=== PATIENT | male | born 1955 ===

== ENCOUNTER 2022-07-23 08:37 | Outpatient (CLI) | payer OTHER | END 2022-07-23 08:40 | disposition home or self-care (01) | LOC: SONOGRAMA 08:37 | PROVIDERS: ATTEND Pathology Anatomic Pathology & Clinical Pathology | DX: C73 Malignant neoplasm of thyroid gland (principal) ==

== ENCOUNTER → 2022-10-23 06:08 | Outpatient (CLI) | payer OTHER | END | disposition home or self-care (01) | LOC: LAB 06:08 | PROVIDERS: ATTEND Radiology Diagnostic Ultrasound | DX: C73 Malignant neoplasm of thyroid gland (principal); E89.0 Postprocedural hypothyroidism ==

== ENCOUNTER → 2023-04-01 06:07 | Outpatient (CLI) | payer OTHER ==
[2023-04-01 07:27] LABS: HEMATOCRIT 34.6 % (39.0-48.0); HEMOGLOBIN 11.8 g/dL (13-16.00); MEAN CELL VOLUME 92.4 fL (80.0-100.00); MEAN CORPUSCULAR HEMOGLOBIN 31.6 pg (27.00-32.0); MEAN CORPUSCULAR HGB CONC 34.2 g/dl (32.0-36.0); PLATELET COUNT 266 K/uL (150-450); RED BLOOD COUNT 3.74 M/uL (4.00-6.00); RED CELL DISTRIBUTION WIDTH 13.3 % (11.5-14.5)
[2023-04-01 07:37] LABS: PH,URINE 5.5 (5.0-8.0); URINE APPEARANCE Clear; URINE BILIRRUBIN Negative (NEGATIVE); URINE BLOOD Trace; URINE COLOR Yellow; URINE GLUCOSE Negative (NEGATIVE); URINE LEUKOCYTE Negative; URINE NITRATE Negative; URINE PROTEIN >=1000 (NEGATIVE); URINE UROBILINOGEN 0.2 E.U./dl
[2023-04-01 07:43] LABS: URINE BACTERIA 65.5 uL (0.0-1933); URINE EPITHELIAL CELLS 9.7 uL (0.0-38.8); URINE RBC 2.2 uL (0.0-20.8); URINE WBC 5.2 uL (0.0-23.2)
[2023-04-01 07:57] LABS: ALBUMIN 2.7 gm/dL (3.4-5.0); BILIRUBIN TOTAL 0.32 mg/dL (0.3-1.2); CALCIUM 8.8 mg/dL (8.5-10.1); CREATININE SERUM 2.28 mg/dL (0.70-1.30); GFR 28.62; GLOBULINA 3.3 G/DL (2.4-3.5); POTASSIUM 3.76 mEq/L (3.5-5.1); T4 FREE 1.4 NG/ML (0.76-1.46); TSH 0.408 uIU/mL (0.358-3.74)
== END | disposition home or self-care (01) ==
LOC: LAB 06:07
PROVIDERS: ATTEND Internal Medicine
DX: E11.65 Type 2 diabetes mellitus with hyperglycemia (principal); E03.8 Other specified hypothyroidism; C73 Malignant neoplasm of thyroid gland

== ENCOUNTER → 2023-04-26 07:02 | Outpatient (CLI) | payer OTHER ==
[~2023-04-26 07:02] MED LIST: AMLODIPINE BESY10 MG PO; CRESTOR40 MG PO; GLIMEPIRIDE4 M1 PO; KOMBIGLYZE XR1 EAC2 PO; MICARDIS80 MG PO; PLAVIX75 MG PO; SYNTHROID125 MCG PO
[2023-04-26 08:05] LABS: PH,URINE 5.5 (5.0-8.0); URINE APPEARANCE Clear; URINE BILIRRUBIN Negative (NEGATIVE); URINE BLOOD Trace; URINE COLOR Yellow; URINE LEUKOCYTE Negative; URINE NITRATE Negative; URINE PROTEIN >=1000 (NEGATIVE); URINE UROBILINOGEN 0.2 E.U./dl
[2023-04-26 08:08] LABS: HEMATOCRIT 34.1 % (39.0-48.0); HEMOGLOBIN 11.7 g/dL (13-16.00); MEAN CELL VOLUME 93.1 fL (80.0-100.00); MEAN CORPUSCULAR HGB CONC 34.4 g/dl (32.0-36.0); PLATELET COUNT 215 K/uL (150-450); RED BLOOD COUNT 3.66 M/uL (4.00-6.00); RED CELL DISTRIBUTION WIDTH 13.9 % (11.5-14.5)
[2023-04-26 08:09] LABS: URINE BACTERIA 37.7 uL (0.0-1933); URINE EPITHELIAL CELLS 4.3 uL (0.0-38.8); URINE WBC 1.8 uL (0.0-23.2)
[2023-04-26 08:31] LABS: INR 1.01; PARTIAL THROMBOPLASTIN TIME 25.9 SECONDS (22.0-34.0); PROTHROMBIN TIME 10.6 SECONDS (9.0-11.5)
[2023-04-26 08:38] LABS: ALBUMIN 3.3 gm/dL (3.4-5.0); BILIRUBIN TOTAL 0.39 mg/dL (0.3-1.2); CALCIUM 9.1 mg/dL (8.5-10.1); CREATININE SERUM 2.35 mg/dL (0.70-1.30); GFR 27.64; GLOBULINA 3.3 G/DL (2.4-3.5); POTASSIUM 4.08 mEq/L (3.5-5.1); TOTAL PROTEIN 6.6 gm/dL (6.4-8.2)
[2023-04-26 09:05] LABS: URINE GLUCOSE 100 MG/DL (NEGATIVE); URINE RBC 1.7 uL (0.0-20.8)
== END | disposition home or self-care (01) ==
LOC: LAB 07:02
PROVIDERS: ATTEND Orthopaedic Surgery
DX: D68.9 Coagulation defect, unspecified (principal); E78.2 Mixed hyperlipidemia; N39.0 Urinary tract infection, site not specified

== ENCOUNTER → 2023-04-26 08:00 | Outpatient (CLI) | payer OTHER ==
[~2023-04-26] VITALS: Ht 175.3 cm; Wt 66.2 kg
== END | disposition home or self-care (01) ==
LOC: RAD 08:00 → SURH 05-03 09:15 → EDSTATUS 05-03 09:15
PROVIDERS: ATTEND Orthopaedic Surgery
DX: R07.9 Chest pain, unspecified (principal); I47.11 Inappropriate sinus tachycardia, so stated; M85.661 Other cyst of bone, right lower leg

== ENCOUNTER → 2023-05-24 06:07 | Outpatient (CLI) | payer OTHER ==
[2023-05-24 08:54] LABS: CREATININE URINE 42.4 MG/DL; URINE PROT QUANT 24HR 125.9 MG/DL
[2023-05-24 08:57] LABS: URINE PROT QUANT 24 HR 3304.88 MG/24HR (42-225)
[2023-05-24 09:38] LABS: CREATINE CLEARANCE 28.7 ML/MIN (97-137); CREATININE SERUM 2.7 mg/dL (0.8-1.3)
== END | disposition home or self-care (01) ==
LOC: LAB 06:07
PROVIDERS: ATTEND Internal Medicine Nephrology
DX: N18.4 Chronic kidney disease, stage 4 (severe) (principal); E11.22 Type 2 diabetes mellitus with diabetic chronic kidney disease; E78.5 Hyperlipidemia, unspecified; R80.9 Proteinuria, unspecified

== ENCOUNTER 2023-05-25 06:12 | Outpatient (CLI) | payer OTHER ==
[2023-05-25 07:00] LABS: PH,URINE 5.5 (5.0-8.0); URINE APPEARANCE Clear; URINE BILIRRUBIN Negative (NEGATIVE); URINE BLOOD Negative; URINE COLOR Yellow; URINE GLUCOSE Negative (NEGATIVE); URINE LEUKOCYTE Negative; URINE NITRATE Negative; URINE UROBILINOGEN 0.2 E.U./dl
[2023-05-25 07:01] LABS: URINE BACTERIA 15.1 uL (0.0-1933); URINE EPITHELIAL CELLS 3.5 uL (0.0-38.8); URINE WBC 4.7 uL (0.0-23.2)
[2023-05-25 07:08] LABS: HEMOGLOBIN 11.3 g/dL (13-16.00); MEAN CELL VOLUME 94.2 fL (80.0-100.00); MEAN CORPUSCULAR HEMOGLOBIN 32.4 pg (27.00-32.0); MEAN CORPUSCULAR HGB CONC 34.4 g/dl (32.0-36.0); PLATELET COUNT 194 K/uL (150-450); RED CELL DISTRIBUTION WIDTH 13.4 % (11.5-14.5)
[2023-05-25 07:10] LABS: URINE PROTEIN 300 (NEGATIVE); URINE RBC 1.7 uL (0.0-20.8)
[2023-05-25 07:26] LABS: ALBUMIN 3.3 gm/dL (3.4-5.0); CALCIUM 8.5 mg/dL (8.5-10.1); CHOL HDL RATIO 2.1 (0-5.0); CREATININE SERUM 2.6 mg/dL (0.70-1.30); GFR 24.6; PHOSPHOROUS 3.8 mg/dL (2.5-4.9); POTASSIUM 4.39 mEq/L (3.5-5.1); URIC ACID 4.8 mg/dL (3.5-8.5)
[2023-05-28 15:11] LABS: albu 79.5 % (.); alp 1.7 % (.); alph 2 2.4 % (.); gam 7.4 % (.); m spi 0 % (Not Observed); prot 335.4 mg/dL (Not Estab.)
[2023-05-29 05:06] LABS: alpha 1 g 0.2 g/dL (0.0-0.4); alpha 2 0.9 g/dL (0.4-1.0); beta g 1.1 g/dL (0.7-1.3); gamma g 0.8 g/dL (0.4-1.8); m spike Not Observed g/dL (Not Observed); prot total 6.1 g/dL (6.0-8.5)
== END 2023-05-25 06:13 | disposition home or self-care (01) ==
LOC: LAB 06:12
PROVIDERS: ATTEND Internal Medicine Nephrology
DX: N18.4 Chronic kidney disease, stage 4 (severe) (principal); I10 Essential (primary) hypertension; E11.22 Type 2 diabetes mellitus with diabetic chronic kidney disease; E78.9 Disorder of lipoprotein metabolism, unspecified; R80.1 Persistent proteinuria, unspecified

== ENCOUNTER → 2023-06-02 06:08 | Outpatient (CLI) | payer OTHER ==
[2023-06-02 07:18] LABS: HEMATOCRIT 32.3 % (39.0-48.0); HEMOGLOBIN 11.2 g/dL (13-16.00); MEAN CELL VOLUME 93.6 fL (80.0-100.00); MEAN CORPUSCULAR HEMOGLOBIN 32.3 pg (27.00-32.0); MEAN CORPUSCULAR HGB CONC 34.6 g/dl (32.0-36.0); PLATELET COUNT 214 K/uL (150-450); RED BLOOD COUNT 3.45 M/uL (4.00-6.00); RED CELL DISTRIBUTION WIDTH 13.1 % (11.5-14.5)
== END | disposition home or self-care (01) ==
LOC: LAB 06:08
PROVIDERS: ATTEND Internal Medicine
DX: D64.9 Anemia, unspecified (principal)

== ENCOUNTER 2023-09-11 07:07 | Outpatient (CLI) | payer OTHER ==
[2023-09-11 08:16] LABS: URINE APPEARANCE Clear; URINE BILIRRUBIN Negative (NEGATIVE); URINE BLOOD Negative; URINE COLOR Yellow; URINE GLUCOSE Negative (NEGATIVE); URINE LEUKOCYTE Negative; URINE NITRATE Negative; URINE UROBILINOGEN 0.2 E.U./dl
[2023-09-11 08:17] LABS: URINE BACTERIA 28.9 uL (0.0-1933); URINE EPITHELIAL CELLS 7.1 uL (0.0-38.8); URINE RBC 3.8 uL (0.0-20.8); URINE WBC 4.7 uL (0.0-23.2)
[2023-09-11 09:06] LABS: ALBUMIN 3.5 gm/dL (3.4-5.0); BILIRUBIN TOTAL 0.41 mg/dL (0.3-1.2); CALCIUM 8.8 mg/dL (8.5-10.1); CREATININE SERUM 3.05 mg/dL (0.70-1.30); GFR 20.46; GLOBULINA 3.1 G/DL (2.4-3.5); PHOSPHOROUS 3.8 mg/dL (2.5-4.9); POTASSIUM 4.49 mEq/L (3.5-5.1); T4 FREE 1.25 NG/ML (0.76-1.46); TOTAL PROTEIN 6.6 gm/dL (6.4-8.2)
[2023-09-11 09:09] LABS: TSH 0.143 uIU/mL (0.358-3.74)
[2023-09-11 09:12] LABS: URINE PROTEIN 300 (NEGATIVE)
[2023-09-11 09:34] LABS: HEMATOCRIT 29.3 % (39.0-48.0); HEMOGLOBIN 10.2 g/dL (13-16.00); MEAN CELL VOLUME 95.3 fL (80.0-100.00); MEAN CORPUSCULAR HEMOGLOBIN 33.1 pg (27.00-32.0); MEAN CORPUSCULAR HGB CONC 34.8 g/dl (32.0-36.0); PLATELET COUNT 185 K/uL (150-450); RED BLOOD COUNT 3.07 M/uL (4.00-6.00); RED CELL DISTRIBUTION WIDTH 12.1 % (11.5-14.5)
[2023-09-11 10:26] LABS: URIC ACID 5.7 mg/dL (3.5-8.5)
== END 2023-09-11 07:08 | disposition home or self-care (01) ==
LOC: LAB 07:07
PROVIDERS: ATTEND Internal Medicine
DX: E11.65 Type 2 diabetes mellitus with hyperglycemia (principal); E03.8 Other specified hypothyroidism; I10 Essential (primary) hypertension; N18.4 Chronic kidney disease, stage 4 (severe); E11.22 Type 2 diabetes mellitus with diabetic chronic kidney disease; R80.9 Proteinuria, unspecified

== ENCOUNTER 2023-12-06 06:41 | Outpatient (CLI) | payer OTHER ==
[2023-12-06 07:49] LABS: PH,URINE 5.5 (5.0-8.0); URINE APPEARANCE Clear; URINE BILIRRUBIN Negative (NEGATIVE); URINE BLOOD Small; URINE COLOR Yellow; URINE GLUCOSE Negative (NEGATIVE); URINE KETONE Negative (NEGATIVE); URINE LEUKOCYTE Negative; URINE NITRATE Negative; URINE UROBILINOGEN 0.2 E.U./dl
[2023-12-06 07:53] LABS: URINE BACTERIA 41.5 uL (0.0-1933); URINE CAST 2.28 uL (0.0-1.40); URINE WBC 4.6 uL (0.0-23.2)
[2023-12-06 08:07] LABS: CREATININE URINE RANDOM 96.2 MG/DL (30-125)
[2023-12-06 08:08] LABS: HEMATOCRIT 29.3 % (39.0-48.0); HEMOGLOBIN 10.3 g/dL (13-16.00); MEAN CELL VOLUME 94.3 fL (80.0-100.00); MEAN CORPUSCULAR HEMOGLOBIN 33.3 pg (27.00-32.0); MEAN CORPUSCULAR HGB CONC 35.3 g/dl (32.0-36.0); PLATELET COUNT 163 K/uL (150-450); RED CELL DISTRIBUTION WIDTH 13.3 % (11.5-14.5)
[2023-12-06 08:38] LABS: URINE PROTEIN 300 (NEGATIVE)
[2023-12-06 09:45] LABS: ALBUMIN 3.1 gm/dL (3.4-5.0); BILIRUBIN TOTAL 0.37 mg/dL (0.3-1.2); CALCIUM 8.6 mg/dL (8.5-10.1); CHOL HDL RATIO 1.8 (0-5.0); CREATININE SERUM 3.21 mg/dL (0.70-1.30); GFR 19.29; PHOSPHOROUS 3.6 mg/dL (2.5-4.9); POTASSIUM 4.16 mEq/L (3.5-5.1); TOTAL PROTEIN 6.1 gm/dL (6.4-8.2)
[2023-12-06 09:46] LABS: TSH 0.203 uIU/mL (0.358-3.74)
== END 2023-12-06 06:45 | disposition home or self-care (01) ==
LOC: LAB 06:41
PROVIDERS: ATTEND Internal Medicine
DX: E78.5 Hyperlipidemia, unspecified (principal); E03.8 Other specified hypothyroidism; E11.65 Type 2 diabetes mellitus with hyperglycemia; Z00.00 Encounter for general adult medical examination without abnormal findings; I11.9 Hypertensive heart disease without heart failure; N39.0 Urinary tract infection, site not specified; N18.4 Chronic kidney disease, stage 4 (severe); I10 Essential (primary) hypertension; E11.22 Type 2 diabetes mellitus with diabetic chronic kidney disease; R80.9 Proteinuria, unspecified

== ENCOUNTER 2024-07-18 07:20 | Outpatient (CLI) | payer OTHER | END 2024-07-18 07:23 | disposition home or self-care (01) | LOC: SONOGRAMA 07:20 | PROVIDERS: ATTEND Internal Medicine | DX: C73 Malignant neoplasm of thyroid gland (principal); R22.1 Localized swelling, mass and lump, neck ==

== ENCOUNTER 2024-09-02 07:09 | Outpatient (CLI) | payer OTHER ==
[2024-09-02 09:15] LABS: BASO % 0.4 % (0.1-1.2); EOS # 0.08 (0.04-0.54); EOS % 1.6 % (0.7-7.0); HEMATOCRIT 31.2 % (40.1-51.0); HEMOGLOBIN 10.3 g/dL (13.7-17.5); LYMPH # 1.48 (1.18-3.74); LYMPH % 29.5 % (19.3-53.1); MEAN CORPUSCULAR HEMOGLOBIN 33.1 pg (25.6-32.2); MONO # 0.26 (0.24-0.82); MONO % 5.2 % (4.7-12.5); NEUT # 3.17 (1.56-6.13); NEUT % 63.1 % (34.0-71.1); PLATELET COUNT 164 K/uL (163-369); RED BLOOD COUNT 3.11 M/uL (4.63-6.08); RED CELL DISTRIBUTION WIDTH 11.8 % (11.6-14.4)
[2024-09-02 10:19] LABS: ALBUMIN 3.5 gm/dL (3.4-5.0); BILIRUBIN TOTAL 0.44 mg/dL (0.3-1.2); CALCIUM 8.6 mg/dL (8.5-10.1); POTASSIUM 5.13 mEq/L (3.5-5.1); T4 FREE 0.76 NG/ML (0.76-1.46); TOTAL PROTEIN 6.5 gm/dL (6.4-8.2)
[2024-09-02 10:39] LABS: CHOL HDL RATIO 3.7 (0-5.0); GFR 8.28; TSH 23.9 uIU/mL (0.358-3.74)
[2024-09-02 10:40] LABS: CREATININE SERUM 6.66 mg/dL (0.70-1.30)
== END 2024-09-02 09:24 | disposition home or self-care (01) ==
LOC: LAB 07:09
PROVIDERS: ATTEND Internal Medicine
DX: E11.65 Type 2 diabetes mellitus with hyperglycemia (principal); I10 Essential (primary) hypertension; C73 Malignant neoplasm of thyroid gland; E03.8 Other specified hypothyroidism

== ENCOUNTER 2025-01-06 07:05 | Outpatient (CLI) | payer OTHER ==
[2025-01-06 09:21] LABS: BASO % 0.6 % (0.1-1.2); EOS # 0.13 (0.04-0.54); EOS % 1.9 % (0.7-7.0); LYMPH # 1.92 (1.18-3.74); LYMPH % 27.8 % (19.3-53.1); MEAN PLATELET VOLUME 10.70 fl (9.4-12.4); MONO # 0.43 (0.24-0.82); MONO % 6.2 % (4.7-12.5); NEUT # 4.38 (1.56-6.13); NEUT % 63.4 % (34.0-71.1); RED CELL DISTRIBUTION WIDTH 12.4 % (11.6-14.4)
[2025-01-06 09:59] LABS: ALT/SGPT 19.0 U/L (12-78); AST/SGOT 13.0 U/L (15-37); BILIRUBIN TOTAL 0.49 mg/dL (0.3-1.2); GLOBULINA 3.5 G/DL (2.4-3.5); GLUCOSE FASTING 100.0 mg/dL (65-100); OSMOLALITY SERUM 290.0 MOSM/KG (275-295); T4 FREE 1.09 NG/ML (0.76-1.46)
[2025-01-06 10:54] LABS: BUN CREA RATIO 4.0 (7.0-25.0); GFR 7.5
[2025-01-06 10:56] LABS: CREATININE SERUM 7.26 mg/dL (0.70-1.30); TSH 9.06 uIU/mL (0.358-3.74)
== END 2025-01-06 07:08 | disposition home or self-care (01) ==
LOC: LAB 07:05
PROVIDERS: ATTEND Internal Medicine
DX: E11.65 Type 2 diabetes mellitus with hyperglycemia (principal); E03.8 Other specified hypothyroidism; E78.5 Hyperlipidemia, unspecified